=== PATIENT | female | born 1935 | race Caucasian/White ===

== ENCOUNTER 2019-11-02 17:56 | Emergency (ER) | payer MEDICARE, OTHER ==
[~2019-11-02] VITALS: Ht 157.5 cm; Wt 70.0 kg
--- NOTE | 2019-11-02 18:03 | PHYS DOC ---
Past History Past Medical History: Anemia, Arthritis, Arrhythmia, Cancer, Fibromyalgia, GERD, Hypertension, Hypothyroid, Other Past Medical History Glaucoma Past Surgical History: Cancer Surgery, Other Alcohol Use: None Drug Use: None General Adult EDM: Chief Complaint: MECHANICAL FALL HPI: HPI: ",,, I fell in the garage...and hurt my Lt. wrist again... I hit my head too..." " This is the same wrist I broke before.. and it feels like and looks like it 's broke again..." Patient is a 83 year old female who presents with above hx and complaints Lt. . wrist and head injury. Patient this give a clear history why she fell in her garage. Patient states she does drag her feet and states she may have tripped but does not know for sure that is what happened. Patient does not remember any dysrhythmia prior to fall. Patient does not remember any dizziness prior to fall. Patient does not remember tripping. Patient denies any recent travel. Patient denies any specific ill contacts. Patient denies any history of specific immunosuppression. Patient does have history of arthritis, dysrhythmias, anemia, GERD, and deconditioning. Patient has not had any recent change in medications. Patient does have a history of hypertension, arthritis, GERD and low thyroid. B patient normally follows with Dr. Reynolds for care. Review of Systems: Review of Systems: Constitutional: Denies fever or chills Eyes: Denies change in visual acuity HENT: Denies nasal congestion or sore throat Respiratory: Denies cough or shortness of breath Cardiovascular: Denies chest pain or edema GI: Denies abdominal pain, nausea, vomiting, bloody stools or diarrhea : Denies dysuria Musculoskeletal: Complains of Lt. wrist pain. Complaints of arthritis Integument: Denies rash Neurologic: Complains of contusion and headache. Patient denies, focal weakness or sensory changes Endocrine: Denies polyuria or polydipsia Lymphatic: Denies swollen glands Psychiatric: Denies depression. Complains of anxiety Heart Score: HEART Score for Chest Pain: HEART Score for Chest Pain Response (Comments) Value History Highly Suspicious 2 ECG Nonspecific Repolarizatio 1 Age > 65 2 Risk Factors 1 or 2 Risk Factors 1 Troponin < Normal Limit 0 Total 6 Risk Factors: Risk Factors: DM, Current or recent (<one month) smoker, HTN, HLP, family history of CAD, obesity. Risk Scores: Score 0 - 3: 2.5% MACE over next 6 weeks - Discharge Home Score 4 - 6: 20.3% MACE over next 6 weeks - Admit for Clinical Observation Score 7 - 10: 72.7% MACE over next 6 weeks - Early Invasive Strategies Family History: Family History: Noncontributory to presentation Current Medications: Current Meds: See nursing for home meds Allergies: Allergies: States she is allergic to flu vaccinations because of a make her muscles hurt patient complains of allergy to Flexeril, gabapentin and tramadol Physical Exam: PE: Constitutional: Moderate acute distress, non-toxic appearance. [] HENT: Normocephalic, contusion/hematoma to scalp, bilateral external ears normal, oropharynx moist, no oral exudates, nose normal. [] Eyes: PERRLA, EOMI, conjunctiva pale, no discharge. [] Neck: Normal range of motion, no tenderness, supple, no stridor. [] Scar Cardiovascular: Irregular rate and rhythm heart rate regular rhythm, PMI to the left. Lungs & Thorax: Bilateral breath sounds equal at apex on auscultation [] surgery scar Abdomen: Bowel sounds normal, soft, no tenderness, no masses, no pulsatile masses. Surgery scar Skin: Warm, dry, no erythema, no rash. Poor turgor Back: No tenderness, no CVA tenderness. [] Extremities: No tenderness, no cyanosis, no clubbing, ROM intact, no edema. [Arthritic changes. Except findings of the left wrist pain and obvious fractur e. Patient is right-hand dominant. Left wrist angulated. Marked edema. Distal cyanosis and fingertips of left hand.. Does have some decreased sensory in fingers of left hand. (These findings of distal cyanosis and sensation lost in Lt. finger tips resolved after partial reduction and splinting). Old scar left arm Neurologic: Alert and oriented X 3, moves all extremities on request, does have distal sensory,, no focal deficits noted. [] Patient has right-hand dominant Psychologic: Affect anxious judgement normal, mood normal. [] Some obvious memory issues. EKG: EKG: My interpretation EKG shows a rhythm ventricular rate of 77., Left axis deviation, obvious intraventricular block. No current comparison EKG found. [] Radiology/Procedures: Radiology/Procedures: [[address] [address] IMAGING REPORT Signed PATIENT: MARIS LI ACCOUNT: [id number] : 1935 LOCATION: ER AGE: 83 SEX: F EXAM STATUS: REG ER ORD. PHYSICIAN: ROSA COX MD REASON: repeat after splinting PROCEDURE: WRIST 3V LEFT Left wrist portable 3 views 11/02/2019. Reason for exam: Splinting of fracture. Comparison is made with a study of earlier in the day. There is now a splint in place. Angulation of the fracture at the distal radius appears reduced. No other changes noted. IMPRESSION: Splinted and reduced distal radius fracture. Electronically signed by: Christian Brantley Jr., MD (11/02/2019 8:12 PM) [facility] DICTATED AND SIGNED BY: CHRISTIAN BRANTLEY Jr, MD DATE: 11/02/192011 CC: ROSA COX MD; RONALD REYNOLDS MD ~ ][address] [address] IMAGING REPORT Signed PATIENT: MARIS LI ACCOUNT: [id number] : 1935 LOCATION: ER AGE: 83 SEX: F EXAM STATUS: REG ER ORD. PHYSICIAN: ROSA COX MD REASON: fall, head injury PROCEDURE: CT HEAD AND CERVICAL SPINE WO CT head and cervical spine without contrast 11/02/2019. Reason for exam: Fell and hit head. Noncontrast images were performed. Exposure: One or more of the following individualized dose reduction techniques were utilized for this examination: 1. Automated exposure control 2. Adjustment of the mA and/or kV according to patient size 3. Use of iterative reconstruction technique. CT HEAD: There is no apparent intracranial hemorrhage or abnormal extra-axial fluid collection. No area of abnormal density is seen in the brain. The ventricles and basilar cisterns are normally positioned. Bone windows reveal no apparent fracture of the skull or abnormal sinus or mastoid opacification. CT cervical spine: Alignment is normal. There is no loss of vertebral body height or prevertebral soft tissue swelling. No fracture line is seen. There is disc narrowing at C4-5, C5-6 and C6-7. Evaluation of the soft tissue components of the canal is limited without intrathecal contrast. No destructive process is seen. IMPRESSION: No acute abnormality. Electronically signed by: Christian Brantley Jr., MD (11/02/2019 6:38 PM) [facility] DICTATED AND SIGNED BY: CHRISTIAN BRANTLEY Jr, MD DATE: 11/02/191837 CC: ROSA COX MD; RONALD REYNOLDS MD ~ IMAGING REPORT Signed PATIENT: MARIS LI ACCOUNT: [id number] : 1935 LOCATION: ER AGE: 83 SEX: F EXAM STATUS: REG ER ORD. PHYSICIAN: ROSA COX MD REASON: FALL, LEFT WRIST PAIN AND DEFORMITY PROCEDURE: WRIST 3V LEFT Left wrist 3 views 11/02/2019. Reason for exam: Pain after falling. There is an impacted and angulated distal radius fracture. The distal component is tilted dorsally with displacement of about 6 mm. No other fracture is seen. There is some widening of the scapholunate space suggesting ligamentous disruption or laxity. Arthritic changes are present in the radial side of the wrist. IMPRESSION: Angulated displaced distal radius fracture. AP portable chest 11/02/2019. Reason for exam: Patient fell. Wrist fracture. No infiltrate or effusion is seen. Heart size and pulmonary vascularity appear normal. The bony thorax is grossly intact. There is some scoliosis of the thoracolumbar spine. IMPRESSION: No acute cardiopulmonary disease. Electronically signed by: Christian Brantley Jr., MD (11/02/2019 6:32 PM) [facility] DICTATED AND SIGNED BY: CHRISTIAN BRANTLEY Jr, MD DATE: 11/02/191831 CC: ROSA COX MD; RONALD REYNOLDS MD ~ Course & Med Decision Making: Course & Med Decision Making Pertinent Labs and Imaging studies reviewed. (See chart for details) Procedure note-splint placement and reduction of angulation of left wrist -the severely angulated left wrist was prepped with Betadine. Injected fracture site with Sensorcaine 0.5%and 2% lidocaine. Gentle traction was able to reduce angulation and placed splint. Did have marked improvement of distal circulation of fingertips and sensation in left hand fingertips. Patient to keep wrist elevated on a pillow. If develops increased pain or signs of poor circulation to left hand fingertips must notify her nurse or doctor at [facility]. Discussed presentation, testing and treatment plan with Dr.'s Timothy Virk and Dr. Fernandez. Plan transfer to [facility]. Dr. Fernandez accepting. Dr. Simons consulted, will see pt after admission. Requested pt to be NPO after midnight if he decides to take her to surgery. Plan cardiology and neuro consult. Impression: 1. History of fall-etiology of fall is on clear- ? Syncopal? 2. Closed comminuted fracture of left wrist 3. Anemia macrocytic hyperchromic hemoglobin 9.6, MCV 119, MCH 42 with abnormal morphology teardrops ect/ 4. Elevated d-dimer more than 19 5. Elevated CK 195 6. Elevated bilirubin T=1.2, D= 0.3 7. Mild hypokalemia kalemia 3.3 8. Elevated BUN 25 and creatinine 1.3 9. Urinary tract infection 10.Head Contusion/ Injury [] Dragon Disclaimer: Dragon Disclaimer: This electronic medical record was generated, in whole or in part, using a voice recognition dictation system. Departure Departure: Disposition: 01 HOME/RESIDENCE PRIOR TO ADM Condition: STABLE Referrals: RONALD REYNOLDS MD (PCP) Justification of Admission: Justification of Admission: Justification of Admission Dx: Yes Comments: Syncopal Dragon Disclaimer This chart was dictated in whole or in part using Voice Recognition software in a busy, high-work load, and often noisy Emergency Department environment. It may contain unintended and wholly unrecognized errors or omissions. Dragon Disclaimer This chart was dictated in whole or in part using Voice Recognition software in a busy, high-work load, and often noisy Emergency Department environment. It may contain unintended and wholly unrecognized errors or omissions. ROSA COX MD Nov 02, 2019 18:03
--- NOTE | 2019-11-02 18:35 | RAD ---
Left wrist 3 views 11/02/2019. Reason for exam: Pain after falling. There is an impacted and angulated distal radius fracture. The distal component is tilted dorsally with displacement of about 6 mm. No other fracture is seen. There is some widening of the scapholunate space suggesting ligamentous disruption or laxity. Arthritic changes are present in the radial side of the wrist. IMPRESSION: Angulated displaced distal radius fracture. AP portable chest 11/02/2019. Reason for exam: Patient fell. Wrist fracture. No infiltrate or effusion is seen. Heart size and pulmonary vascularity appear normal. The bony thorax is grossly intact. There is some scoliosis of the thoracolumbar spine. IMPRESSION: No acute cardiopulmonary disease. Electronically signed by: Emile Brantley Jr., MD (11/02/2019 6:32 PM) [facility]
--- NOTE | 2019-11-02 18:42 | RAD ---
CT head and cervical spine without contrast 11/02/2019. Reason for exam: Fell and hit head. Noncontrast images were performed. Exposure: One or more of the following individualized dose reduction techniques were utilized for this examination: 1. Automated exposure control 2. Adjustment of the mA and/or kV according to patient size 3. Use of iterative reconstruction technique. CT HEAD: There is no apparent intracranial hemorrhage or abnormal extra-axial fluid collection. No area of abnormal density is seen in the brain. The ventricles and basilar cisterns are normally positioned. Bone windows reveal no apparent fracture of the skull or abnormal sinus or mastoid opacification. CT cervical spine: Alignment is normal. There is no loss of vertebral body height or prevertebral soft tissue swelling. No fracture line is seen. There is disc narrowing at C4-5, C5-6 and C6-7. Evaluation of the soft tissue components of the canal is limited without intrathecal contrast. No destructive process is seen. IMPRESSION: No acute abnormality. Electronically signed by: Emile Brantley Jr., MD (11/02/2019 6:38 PM) [facility]
[2019-11-02] MEDS ORDERED: IV RINGERS SOLUTION,LACTATED 1,000 ML IV SCH (18:49)
[2019-11-02] MEDS ORDERED: BUPIVACAINE MPF 0.5% 30 ML VIAL. SQ ONE (19:00)
[2019-11-02] MEDS ORDERED: LIDOCAINE 2% 20 ML VIAL. IJ ONE (19:00)
[2019-11-02 19:14] LABS: BASO % 0 % (0-3); EOS # 0.1 x10^3/uL (0.0-0.7); EOS % 2 % (0-3); HEMATOCRIT 27.2 % (36.0-47.0); HEMOGLOBIN 9.6 g/dL (12.0-15.5); LYMPH # 1.1 x10^3/uL (1.0-4.8); LYMPH % 32 % (24-48); MEAN CORPUSCULAR HEMOGLOBIN 42 pg (25-35); MEAN CORPUSCULAR HGB CONC 35 g/dL (31-37); MEAN CORPUSCULAR VOLUME 119 fL (79-100); MONO # 0.2 x10^3/uL (0.0-1.1); MONO % 5 % (0-9); NEUT # 2.1 x10^3uL (1.8-7.7); NEUT % 62 % (31-73); PLATELET COUNT 116 x10^3/uL (140-400); RED BLOOD COUNT 2.28 x10^6/uL (3.50-5.40); WHITE BLOOD COUNT 3.4 x10^3/uL (4.0-11.0)
[2019-11-02 19:33] LABS: ALBUMIN 3.9 g/dL (3.4-5.0); CALCIUM 9.1 mg/dL (8.5-10.1); CREATININE 1.3 mg/dL (0.6-1.0); DIRECT BILIRUBIN 0.3 mg/dL (0.0-0.2); POTASSIUM 3.3 mmol/L (3.5-5.1); TOTAL BILIRUBIN 1.2 mg/dL (0.2-1.0); TOTAL PROTEIN 6.9 g/dL (6.4-8.2)
[2019-11-02 19:36] LABS: OVALOCYTES PRESENT; PLT ESTIMATE DECREASED (ADEQUATE); POLYCHROMASIA PRESENT; TEAR DROP CELLS PRESENT
[2019-11-02 19:38] LABS: ANISOCYTOSIS PRESENT; PAPPENHEIMER BODIES PRESENT; POIKILOCYTOSIS SLIGHT
[2019-11-02] MEDS ORDERED: POTASSIUM CHLORIDE 20 MEQ TABLET.ER. PO ONE (20:15)
--- NOTE | 2019-11-02 20:15 | RAD ---
Left wrist portable 3 views 11/02/2019. Reason for exam: Splinting of fracture. Comparison is made with a study of earlier in the day. There is now a splint in place. Angulation of the fracture at the distal radius appears reduced. No other changes noted. IMPRESSION: Splinted and reduced distal radius fracture. Electronically signed by: Emile Brantley Jr., MD (11/02/2019 8:12 PM) [facility]
[2019-11-02 20:34] LABS: BILIRUBIN,URINE NEG (NEG); CLARITY,URINE CLOUDY; COLOR,URINE YELLOW; GLUCOSE,URINE NEG (NEG)
[2019-11-02 20:35] LABS: BACTERIA,URINE MANY /HPF (0-FEW); NITRITE,URINE POS (NEG); SQUAMOUS EPITHELIAL CELL,UR FEW /LPF; WBC,URINE 20-40 /HPF (0-4)
--- NOTE | 2019-11-02 20:53 | EKG ---
[address] [address] Test Date: 2019-11-02 Test Time: 19:20:05 Pat Name: MARIS LI Department: Room: Gender: F Guide Delegate: : 1935 Requested By: ROSA COX Order Number: [id number] Reading MD: Measurements Intervals [place] Rate: 77 P: 34 DC: 178 QRS: -38 QRSD: 146 T: 80 QT: 404 QTc: 459 Interpretive Statements SINUS RHYTHM ATRIAL PREMATURE COMPLEX(ES) ABNORMAL LEFT AXIS DEVIATION NON SPECIFIC INTRAVENTRICULAR BLOCK QRS(T) CONTOUR ABNORMALITY CONSISTENT WITH ANTEROSEPTAL INFARCT PROBABLY OLD ABNORMAL ECG RI6.02 No previous ECG available for comparison
[2019-11-02 22:27] VITALS: BP 142/72
[2019-11-02] MEDS ORDERED: levoFLOXacin 500 MG TABLET PO ONE (22:30)
== END 2019-11-02 23:48 | disposition short-term general hospital (02) ==
LOC: ER 17:56
DX: S52.502A Unspecified fracture of the lower end of left radius, initial encounter for closed fracture (principal); S00.03XA Contusion of scalp, initial encounter; D53.9 Nutritional anemia, unspecified; R79.1 Abnormal coagulation profile; R79.89 Other specified abnormal findings of blood chemistry; E80.7 Disorder of bilirubin metabolism, unspecified; E87.6 Hypokalemia; N39.0 Urinary tract infection, site not specified; M19.90 Unspecified osteoarthritis, unspecified site; M79.7 Fibromyalgia; K21.9 Gastro-esophageal reflux disease without esophagitis; I10 Essential (primary) hypertension; E03.9 Hypothyroidism, unspecified; Z86.2 Personal history of diseases of the blood and blood-forming organs and certain disorders involving the immune mechanism; Z88.7 Allergy status to serum and vaccine; Z88.8 Allergy status to other drugs, medicaments and biological substances; W18.39XA Other fall on same level, initial encounter; Y93.89 Activity, other specified; Y92.59 Other trade areas as the place of occurrence of the external cause; Y99.8 Other external cause status
CPT/HCPCS: 25605; 36415; 70450; 71045; 72125; 73110; 80048; 80076; 81001; 82550; 83690; 83735; 83880; 84484; 85025; 85379; 85610; 85730; 86705; 86709; 86803; 87086; 87340; 93005; 96361; 96374; 99285; J2001; J3010; J7120

== ENCOUNTER 2019-11-08 20:02 | Emergency (ER) | payer MEDICARE, OTHER ==
[~2019-11-08] VITALS: Ht 157.5 cm; Wt 63.4 kg
--- NOTE | 2019-11-08 21:08 | EKG ---
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
[2019-11-08 21:14] LABS: BASO % 1 % (0-3); EOS # 0.2 x10^3/uL (0.0-0.7); EOS % 3 % (0-3); HEMATOCRIT 26.2 % (36.0-47.0); HEMOGLOBIN 9.3 g/dL (12.0-15.5); LYMPH # 1.7 x10^3/uL (1.0-4.8); LYMPH % 32 % (24-48); MEAN CORPUSCULAR HEMOGLOBIN 43 pg (25-35); MEAN CORPUSCULAR HGB CONC 35 g/dL (31-37); MEAN CORPUSCULAR VOLUME 121 fL (79-100); MONO # 0.2 x10^3/uL (0.0-1.1); MONO % 5 % (0-9); NEUT # 3.2 x10^3uL (1.8-7.7); NEUT % 60 % (31-73); PLATELET COUNT 311 x10^3/uL (140-400); RED BLOOD COUNT 2.16 x10^6/uL (3.50-5.40); RED CELL DISTRIBUTION WIDTH 18.1 % (11.5-14.5); WHITE BLOOD COUNT 5.2 x10^3/uL (4.0-11.0)
[2019-11-08 21:23] LABS: CALCIUM 9.1 mg/dL (8.5-10.1); CREATININE 1.1 mg/dL (0.6-1.0); GFR 47.3; POTASSIUM 3.7 mmol/L (3.5-5.1)
[2019-11-08 21:25] LABS: BACTERIA,URINE 0 /HPF (0-FEW); BILIRUBIN,URINE NEG (NEG); CLARITY,URINE CLEAR; COLOR,URINE YELLOW; GLUCOSE,URINE NEG (NEG); NITRITE,URINE NEG (NEG)
[2019-11-08 21:26] LABS: HYALINE CASTS, URINE OCC /HPF; SQUAMOUS EPITHELIAL CELL,UR FEW /LPF
[2019-11-08 21:34] LABS: ALBUMIN 3.7 g/dL (3.4-5.0); ALBUMIN/GLOBULIN RATIO 1.2 (1.0-1.7); MAGNESIUM 1.8 mg/dL (1.8-2.4); TOTAL BILIRUBIN 1.5 mg/dL (0.2-1.0); TOTAL PROTEIN 6.7 g/dL (6.4-8.2)
[2019-11-08 22:00] VITALS: BP 141/72
[2019-11-08 22:01] LABS: PLT ESTIMATE ADEQUATE (ADEQUATE)
[2019-11-08 22:02] LABS: ANISOCYTOSIS MOD; OVALOCYTES OCC; POLYCHROMASIA PRESENT
[2019-11-08 22:03] LABS: TEAR DROP CELLS OCC
--- NOTE | 2019-11-08 22:12 | RAD ---
Exam: CT head INDICATION: Syncope TECHNIQUE: Sequential axial images through the head were obtained without the administration of IV contrast. Comparisons: None FINDINGS: No focal parenchymal lesion or hemorrhage is identified. There is no midline shift or sulcal effacement. No acute vascular territory infarction is identified. Grant-white distinction is preserved. The ventricular system is within normal limits without compression hydrocephalus. The basal cisterns are well maintained. The visualized portions of the paranasal sinuses and mastoid air cells are well-pneumatized. No acute fractures. IMPRESSION: No acute intracranial abnormality. Exposure: One or more of the following in the visualized dose reduction techniques were utilized for this examination: 1. Automated exposure control 2. Adjustment of the MA and/or KV according to patient size Use of iterative of reconstructive technique Electronically signed by: Rosmery Blackmon MD (11/08/2019 10:09 PM) [id number]
[2019-11-08] MEDS ORDERED: IV NORMAL SALINE 500ML 500 ML IV ONE (23:00)
--- NOTE | 2019-11-08 23:17 | PHYS DOC ---
Past History Past Medical History: Anemia, Arthritis, Arrhythmia, Cancer, Fibromyalgia, GERD, Hypertension, Hypothyroid, Other Past Surgical History: Cancer Surgery, Other Alcohol Use: None Drug Use: None General Adult EDM: Chief Complaint: SYNCOPE HPI: HPI: Patient is a 83-year-old female who was brought here from home by EMS due to a syncopal episode that she had this morning happened about 9 hours ago. Patient had syncopal episode multiple times in the past. Patient says she was sitting on the toilet, yet had a bowel movement. Patient was standing up when she became dizzy , sat back down on the toilet and passed out briefly. Patient was confused and her speech was slow. EMS was called then, however she felt much better afterwards so she did not want to come to the hospital. Then later this evening her daughter who is a associate of science in nursing came by and convinced her to come to the hospital for evaluation. Patient denies any headache, no chest pain, no abdominal pain, no dizziness, no focal weakness or numbness. Patient denies any cough or fever. Patient did fell and broke her left wrist last week, she had ORIF of her left wrist at [facility] last week. Patient is scheduled to see her orthopedic doctor on Sunday. Review of Systems: Review of Systems: Constitutional: Denies fever or chills Eyes: Denies change in visual acuity HENT: Denies nasal congestion or sore throat Respiratory: Denies cough or shortness of breath Cardiovascular: Denies chest pain or edema GI: Denies abdominal pain, nausea, vomiting, bloody stools or diarrhea : Denies dysuria Musculoskeletal: Denies back pain or joint pain Integument: Denies rash Neurologic: Denies headache, focal weakness or sensory changes Endocrine: Denies polyuria or polydipsia Lymphatic: Denies swollen glands Psychiatric: Denies depression or anxiety Heart Score: Risk Factors: Risk Factors: DM, Current or recent (<one month) smoker, HTN, HLP, family history of CAD, obesity. Risk Scores: Score 0 - 3: 2.5% MACE over next 6 weeks - Discharge Home Score 4 - 6: 20.3% MACE over next 6 weeks - Admit for Clinical Observation Score 7 - 10: 72.7% MACE over next 6 weeks - Early Invasive Strategies Current Medications: Current Meds: Current Medications Medications (Trade) Dose Ordered Sig/Elizabeth Start Time Stop Time Status Last Admin Dose Admin Sodium Chloride 500 ml @ 500 mls/hr 1X ONCE 11/08/19 23:00 11/08/19 23:59 11/08/19 22:57 500 MLS/HR Allergies: Allergies: Allergies Coded Allergies Type Severity Reaction Last Updated Verified Influenza Virus Vaccines Allergy Intermediate 11/08/19 Yes cyclobenzaprine Allergy Intermediate 11/08/19 Yes gabapentin Allergy Intermediate 11/08/19 Yes tramadol Allergy Intermediate 11/08/19 Yes Physical Exam: PE: Constitutional: Well developed, well nourished, no acute distress, non-toxic appearance. [] HENT: Normocephalic, atraumatic, bilateral external ears normal, oropharynx moist, no oral exudates, nose normal. [] Eyes: PERRLA, EOMI, conjunctiva normal, no discharge. [] Neck: Normal range of motion, no tenderness, supple, no stridor. [] Cardiovascular:Heart rate regular rhythm, no murmur [] Lungs & Thorax: Bilateral breath sounds clear to auscultation [] Abdomen: Bowel sounds normal, soft, no tenderness, no masses, no pulsatile masses. [] Skin: Warm, dry, no erythema, no rash. [] Back: No tenderness, no CVA tenderness. [] Extremities: No tenderness, no cyanosis, no clubbing, ROM intact, no edema. Left wrist is in a splint. Neurologic: Alert and oriented X 3, normal motor function, normal sensory function, no focal deficits noted. Normal speech, patient moves all extremities without any problem. Psychologic: Affect normal, judgement normal, mood normal. [] Current Patient Data: Labs: Laboratory Tests Test 11/08/19 20:41 11/08/19 20:58 Urine Collection Type Unknown Urine Color Yellow Urine Clarity Clear Urine pH 6.5 Urine Specific [place] 1.015 Urine Protein Neg (NEG-TRACE) Urine Glucose (UA) Neg mg/dL (NEG) Urine Ketones (Stick) Trace mg/dL (NEG) Urine Blood Neg (NEG) Urine Nitrite Neg (NEG) Urine Bilirubin Neg (NEG) Urine Urobilinogen Dipstick 2.0 mg/dL (0.2 mg/dL) Urine Leukocyte Esterase Neg (NEG) Urine RBC 1-2 /HPF (0-2) Urine WBC 1-4 /HPF (0-4) Urine Squamous Epithelial Cells Few /LPF Urine Bacteria 0 /HPF (0-FEW) Urine Hyaline Casts Occ /HPF Urine Mucus Slight /LPF White Blood Count 5.2 x10^3/uL (4.0-11.0) Red Blood Count 2.16 x10^6/uL (3.50-5.40) L Hemoglobin 9.3 g/dL (12.0-15.5) L Hematocrit 26.2 % (36.0-47.0) L Mean Corpuscular Volume 121 fL (79-100) H Mean Corpuscular Hemoglobin 43 pg (25-35) H Mean Corpuscular Hemoglobin Concent 35 g/dL (31-37) Red Cell Distribution Width 18.1 % (11.5-14.5) H Platelet Count 311 x10^3/uL (140-400) Neutrophils (%) (Auto) 60 % (31-73) Lymphocytes (%) (Auto) 32 % (24-48) Monocytes (%) (Auto) 5 % (0-9) Eosinophils (%) (Auto) 3 % (0-3) Basophils (%) (Auto) 1 % (0-3) Neutrophils # (Auto) 3.2 x10^3uL (1.8-7.7) Lymphocytes # (Auto) 1.7 x10^3/uL (1.0-4.8) Monocytes # (Auto) 0.2 x10^3/uL (0.0-1.1) Eosinophils # (Auto) 0.2 x10^3/uL (0.0-0.7) Basophils # (Auto) 0.0 x10^3/uL (0.0-0.2) Platelet Estimate Adequate (ADEQUATE) Giant Platelets Occ Polychromasia Present Basophilic Stippling Present Anisocytosis Mod Macrocytosis Slight Tear Drop Cells Occ Ovalocytes Occ Sodium Level 141 mmol/L (136-145) Potassium Level 3.7 mmol/L (3.5-5.1) Chloride Level 104 mmol/L (98-107) Carbon Dioxide Level 29 mmol/L (21-32) Anion Gap 8 (6-14) Blood Urea Nitrogen 20 mg/dL (7-20) Creatinine 1.1 mg/dL (0.6-1.0) H Estimated GFR (Cockcroft-Gault) 47.3 BUN/Creatinine Ratio 18 (6-20) Glucose Level 111 mg/dL (70-99) H Calcium Level 9.1 mg/dL (8.5-10.1) Magnesium Level 1.8 mg/dL (1.8-2.4) Total Bilirubin 1.5 mg/dL (0.2-1.0) H Aspartate Amino Transferase (AST) 28 U/L (15-37) Alanine Aminotransferase (ALT) 23 U/L (14-59) Alkaline Phosphatase 76 U/L (46-116) Troponin I Quantitative < 0.017 ng/mL (0-0.055) BR-Taq-F-Type Natriuretic Peptide 418 pg/mL (0-449) Total Protein 6.7 g/dL (6.4-8.2) Albumin 3.7 g/dL (3.4-5.0) Albumin/Globulin Ratio 1.2 (1.0-1.7) Vital Signs: Vital Signs Date Time Temp Pulse Resp B/P (MAP) Pulse Ox O2 Delivery O2 Flow Rate FiO2 11/08/19 22:00 86 16 141/72 (95) 99 Room Air 11/08/19 20:02 98.1 EKG: EKG: EKG was done at 2011, heart rate of 87 bpm, sinus rhythm, left bundle branch block., No STEMI. Radiology/Procedures: Radiology/Procedures: [][place] [address] IMAGING REPORT Signed PATIENT: MARIS LI ACCOUNT: [id number] : 1935 LOCATION: ER AGE: 83 SEX: F EXAM STATUS: REG ER ORD. PHYSICIAN: ELOY BYRNES DO REASON: syncope PROCEDURE: CT HEAD WO CONTRAST Exam: CT head INDICATION: Syncope TECHNIQUE: Sequential axial images through the head were obtained without the administration of IV contrast. Comparisons: None FINDINGS: No focal parenchymal lesion or hemorrhage is identified. There is no midline shift or sulcal effacement. No acute vascular territory infarction is identified. Grant-white distinction is preserved. The ventricular system is within normal limits without compression hydrocephalus. The basal cisterns are well maintained. The visualized portions of the paranasal sinuses and mastoid air cells are well-pneumatized. No acute fractures. IMPRESSION: No acute intracranial abnormality. Exposure: One or more of the following in the visualized dose reduction techniques were utilized for this examination: 1. Automated exposure control 2. Adjustment of the MA and/or KV according to patient size Use of iterative of reconstructive technique Electronically signed by: Rosmery Ray MD (11/08/2019 10:09 PM) [id number] DICTATED AND SIGNED BY: ROSMERY RAY MD DATE: 11/08/192208 CC: RONALD SOLIS MD; ELOY BYRNES DO ~ Course & Med Decision Making: Course & Med Decision Making Pertinent Labs and Imaging studies reviewed. (See chart for details) Patient is an 83-year-old female who appears had a vasovagal response earlier this morning. Patient felt much better afterwards however her family convinced her to come to the hospital for evaluation this evening. Patient did not have any chest pain or any headache or any trouble breathing. Patient feels like her normal self. Work-up did not find any acute problem. Patient was discharged home in stable condition. [employer] Disclaimer: [employer] Disclaimer: This electronic medical record was generated, in whole or in part, using a voice recognition dictation system. Departure Departure: Impression: Primary Impression: Syncope Disposition: 01 HOME/RESIDENCE PRIOR TO ADM Condition: IMPROVED Referrals: RONALD SOLIS MD (PCP) PLEASE FOLLOW UP WITH YOUR DOCTOR NEXT WEEK Patient Instructions: Syncope Additional Instructions: Thank you for visiting our Emergency Department. We appreciate you trusting us with your care. If any additional problems come up don't hesitate to return to visit us. Please follow up with your primary care provider so they can plan additional care if needed and know about the problem that you had. If symptoms worsen come back to the Emergency Department. Any concerning symptoms that start such as chest pain, shortness of air, weakness or numbness on one side of the body, running high fevers or any other concerning symptoms return to the ER. Justification of Admission: Justification of Admission: Justification of Admission Dx: N/A ELOY BYRNES DO Nov 08, 2019 23:17
== END 2019-11-08 23:35 | disposition home or self-care (01) ==
LOC: ER 20:02
DX: R55 Syncope and collapse (principal); R42 Dizziness and giddiness; R41.0 Disorientation, unspecified; M19.90 Unspecified osteoarthritis, unspecified site; M79.7 Fibromyalgia; K21.9 Gastro-esophageal reflux disease without esophagitis; I10 Essential (primary) hypertension; E03.9 Hypothyroidism, unspecified; Z86.2 Personal history of diseases of the blood and blood-forming organs and certain disorders involving the immune mechanism; Z88.7 Allergy status to serum and vaccine; Z88.6 Allergy status to analgesic agent; Z88.8 Allergy status to other drugs, medicaments and biological substances
CPT/HCPCS: 36415; 70450; 80053; 81001; 83735; 83880; 84484; 85025; 93005; 96360; 99285; J7040

== ENCOUNTER → 2019-12-01 | Outpatient (CLI) | payer MEDICARE, OTHER ==
[2019-11-08 22:00] VITALS: BP 141/72
--- NOTE | 2019-12-01 15:55 | RAD ---
Examination: 3 views of the left wrist HISTORY: History of postop follow-up ORIF Comparison: 11/02/2019 Findings/ impression: Plate and screw fixation of the distal radius fracture is identified. There is widening of the scapholunate interval probably secondary to scapholunate ligament injury similar to prior exam. Arthritic changes identified in the radial side of the wrist. Electronically signed by: Garret Garcia MD (12/01/2019 3:53 PM) [id number]
== END | disposition home or self-care (01) ==
LOC: DXRAD 13:17
PROVIDERS: ATTEND Physician Assistant
DX: M19.032 Primary osteoarthritis, left wrist (principal); Z98.890 Other specified postprocedural states
CPT/HCPCS: 73110

== ENCOUNTER → 2019-12-10 | Outpatient (CLI) | payer MEDICARE, OTHER ==
[2019-12-10 09:47] LABS: BILIRUBIN,URINE NEG (NEG); CLARITY,URINE HAZY; COLOR,URINE YELLOW; GLUCOSE,URINE NEG (NEG); NITRITE,URINE NEG (NEG); RBC,URINE OCC /HPF (0-2)
[2019-12-10 09:48] LABS: BACTERIA,URINE FEW /HPF (0-FEW); HYALINE CASTS, URINE FEW /HPF; SQUAMOUS EPITHELIAL CELL,UR FEW /LPF
== END | disposition home or self-care (01) ==
LOC: LAB 09:10
PROVIDERS: ATTEND Specialist
DX: N39.0 Urinary tract infection, site not specified (principal)
CPT/HCPCS: 81001; 87086

== ENCOUNTER → 2019-12-29 | Outpatient (CLI) | payer MEDICARE, OTHER ==
--- NOTE | 2019-12-29 15:47 | RAD ---
EXAM: Clenched fist views and PA and lateral projections DATE: 12/29/2019 1:32 PM INDICATION: Reason: PAIN / Spl. Instructions: / History: COMPARISON: 12/01/2019, 11/02/2019 FINDINGS/ IMPRESSION: Distal left radial fracture post reduction and volar screw plate fixation in stable alignment. Mild articular surface depression of the lunate fossa. Left scapholunate widening suggest underlying scapholunate ligamentous injury, measuring 6 mm, asymmetric increased compared to the right. Left ulnar styloid avulsion fracture is again seen. Bilateral thumb CMC and triscaphe degenerative changes are seen. Electronically signed by: Seymour Pope MD (12/29/2019 3:44 PM) [id number]
== END ==
LOC: RAD 13:26
PROVIDERS: ATTEND Physician Assistant
DX: S52.502A Unspecified fracture of the lower end of left radius, initial encounter for closed fracture (principal); M19.032 Primary osteoarthritis, left wrist; M19.031 Primary osteoarthritis, right wrist; S63.075A Dislocation of distal end of left ulna, initial encounter; X58.XXXA Exposure to other specified factors, initial encounter; Y93.89 Activity, other specified; Y92.89 Other specified places as the place of occurrence of the external cause; Y99.8 Other external cause status; Z98.890 Other specified postprocedural states
CPT/HCPCS: 73100

== ENCOUNTER 2020-02-10 15:20 | Emergency (ER) | payer MEDICARE, OTHER ==
[~2020-02-10] VITALS: Ht 157.5 cm; Wt 63.0 kg
[2020-02-10 15:25] VITALS: BP 153/105
--- NOTE | 2020-02-10 16:20 | RAD ---
EXAM: Head CT without contrast. HISTORY: Confusion. TECHNIQUE: Computed tomographic images of the head were obtained without contrast. *One or more of the following individualized dose reduction techniques were utilized for this examination: 1. Automated exposure control. 2. Adjustment of the mA and/or kV according to patient size. 3. Use of iterative reconstruction technique. COMPARISON: 11/08/2019. FINDINGS: There is no acute or subacute extra-axial or intraparenchymal hemorrhage. There is no mass effect or midline shift. There is no hydrocephalus. There are areas of decreased attenuation within the cerebral white matter, nonspecific and likely related to chronic small vessel disease. The visualized portions of the orbits, paranasal sinuses and mastoid air cells are unremarkable. No suspicious calvarial lesion is seen. IMPRESSION: No acute intracranial finding. Note is made that MRI is more sensitive for acute infarction. Electronically signed by: Alix Soni MD (02/10/2020 4:17 PM) [facility]
--- NOTE | 2020-02-10 16:45 | PHYS DOC ---
Past History Past Medical History: Anemia, Arthritis, Arrhythmia, Cancer, Fibromyalgia, GERD, Hypertension, Hypothyroid, Other (CHELY BOATENG MD) Past Surgical History: Cancer Surgery, Other (CHELY BOATENG MD) Alcohol Use: None Drug Use: None (CHELY BOATENG MD) Adult General Chief Complaint Chief Complaint: ALTERED MENTAL STATUS HPI HPI Patient is an 84-year-old female who presents to the emergency room with some possible confusion. Patient has been staying with her daughter for the last 8 weeks due to progressive weakness. She states she has polio as a child and has had weak legs since that time. She states that weakness is gotten significantly worse over the last couple of years and she is now requiring more help so she is staying with her daughter. She states her daughter noticed yesterday that she was out of it and kind of confused. She states this is continued today so her daughter wanted her sent here to be evaluated. She states she feels a little lightheaded and off but otherwise feels normal. She denies any increased difficulty with gait but does have issues walking at baseline. (CHELY BOATENG MD) Review of Systems Review of Systems Complete ROS is negative unless otherwise documented in HPI (CHELY BOATENG MD) Allergies Allergies Allergies Coded Allergies Type Severity Reaction Last Updated Verified Influenza Virus Vaccines Allergy Intermediate 02/10/20 Yes cyclobenzaprine Allergy Intermediate 02/10/20 Yes gabapentin Allergy Intermediate 02/10/20 Yes tramadol Allergy Intermediate 02/10/20 Yes (CHELY BOATENG MD) Physical Exam Physical Exam General: Awake, alert, NAD. Well Nourished, well hydrated. Cooperative HEENT: Atraumatic, EOMI, PERRL, airway patent, moist oral mucosa Neck: Supple, trachea midline Respiratory: CTA bilaterally, normal effort, no wheezing/crackles CV: RRR, no murmur, cap refill <2 GI: Soft, nondistended, nontender, no masses MSK: No obvious deformities Skin: Warm, dry, intact Neuro: A&O x3, speech NL, 5/5 strength in BUE/BLE distally and proximally, CN 2- 12 intact, cerebellar testing normal Psych: Normal affect, normal mood, not suicidal or homicidal (CHELY BOATENG MD) Current Patient Data Vital Signs Vital Signs Date Time Temp Pulse Resp B/P (MAP) Pulse Ox O2 Delivery O2 Flow Rate FiO2 12/1/20 15:25 98.5 80 24 153/105 (121) 99 Room Air (CHEYL BOATENG MD) EKG EKG [] (CHELY BOATENG MD) Radiology/Procedures Radiology/Procedures [] (CHELY BOATENG MD) Heart Score Risk Factors: Risk Factors: DM, Current or recent (<one month) smoker, HTN, HLP, family history of CAD, obesity. Risk Scores: Risk Factors: DM, Current or recent (<one month) smoker, HTN, HLP, family history of CAD, obesity. (CHELY BOATENG MD) Course & Med Decision Making Course & Med Decision Making Pertinent Labs and Imaging studies reviewed. (See chart for details) Patient is 89-year-old female presents to the emergency room with possible increasing confusion. Patient is alert and oriented and able to give a full history at this time. CT head was done as symptoms started yesterday. There is no signs of a subacute stroke. Patient does not have any focal deficits that would be suggestive of a stroke. Metabolic work-up was ordered including a UA to evaluate for UTI. (CHELY BOATENG MD) Course & Med Decision Making Accepted care patient at shift change, she is pending UA and getting fluids. UA resulted negative for UTI. Discussed with patient labs consistent with her being dehydrated, patient states she tries to drink water but recently has not been very good about it. Patient open to go home, lives with daughter. (OLGA FLOOD MD) Dragon Disclaimer Dragon Disclaimer This electronic medical record was generated, in whole or in part, using a voice recognition dictation system. (CHELY BOATENG MD) Departure Departure: Impression: Primary Impression: Altered mental status Additional Impression: Dehydration Disposition: 01 DC HOME SELF CARE/HOMELESS Condition: STABLE Referrals: RONALD SOLIS MD (PCP) Patient Instructions: Dehydration, Adult Problem Qualifiers CHELY BOATENG MD Feb 10, 2020 16:45 OLGA FLOOD MD Feb 10, 2020 18:24
[2020-02-10 16:46] LABS: BASO % 0 % (0-3); EOS # 0.1 x10^3/uL (0.0-0.7); EOS % 2 % (0-3); HEMATOCRIT 34.9 % (36.0-47.0); HEMOGLOBIN 11.2 g/dL (12.0-15.5); LYMPH # 1.4 x10^3/uL (1.0-4.8); LYMPH % 23 % (24-48); MEAN CORPUSCULAR HEMOGLOBIN 34 pg (25-35); MEAN CORPUSCULAR HGB CONC 32 g/dL (31-37); MEAN CORPUSCULAR VOLUME 106 fL (79-100); MONO # 0.5 x10^3/uL (0.0-1.1); MONO % 8 % (0-9); NEUT # 3.9 x10^3uL (1.8-7.7); NEUT % 67 % (31-73); PLATELET COUNT 229 x10^3/uL (140-400); RED BLOOD COUNT 3.31 x10^6/uL (3.50-5.40); RED CELL DISTRIBUTION WIDTH 19.6 % (11.5-14.5); WHITE BLOOD COUNT 5.9 x10^3/uL (4.0-11.0)
[2020-02-10 16:53] LABS: CALCIUM 8.2 mg/dL (8.5-10.1); CREATININE 0.9 mg/dL (0.6-1.0); GFR 59.5; POTASSIUM 3.1 mmol/L (3.5-5.1)
[2020-02-10 17:00] LABS: ALBUMIN 3.3 g/dL (3.4-5.0); ALBUMIN/GLOBULIN RATIO 1.3 (1.0-1.7); TOTAL BILIRUBIN 0.5 mg/dL (0.2-1.0); TOTAL PROTEIN 5.9 g/dL (6.4-8.2)
[2020-02-10] MEDS ORDERED: IV NORMAL SALINE 1,000ML 1,000 ML IV ONE (17:30)
[2020-02-10 17:46] LABS: CLARITY,URINE CLEAR; COLOR,URINE COLORLESS; GLUCOSE,URINE NEG (NEG)
[2020-02-10 17:47] LABS: BACTERIA,URINE 0 /HPF (0-FEW); BILIRUBIN,URINE NEG (NEG); NITRITE,URINE NEG (NEG); RBC,URINE 0 /HPF (0-2); UROBILINOGEN,URINE 0.2 mg/dL (0.2 mg/dL); WBC,URINE 0 /HPF (0-4)
== END 2020-02-10 18:50 | disposition home or self-care (01) ==
LOC: ER 15:20
DX: E86.0 Dehydration (principal); R41.82 Altered mental status, unspecified; M19.90 Unspecified osteoarthritis, unspecified site; M79.7 Fibromyalgia; K21.9 Gastro-esophageal reflux disease without esophagitis; I10 Essential (primary) hypertension; E03.9 Hypothyroidism, unspecified; Z86.2 Personal history of diseases of the blood and blood-forming organs and certain disorders involving the immune mechanism; Z88.7 Allergy status to serum and vaccine; Z88.8 Allergy status to other drugs, medicaments and biological substances
CPT/HCPCS: 36415; 70450; 80053; 81001; 85025; 96360; 99284; J7030

== ENCOUNTER → 2020-02-16 | Outpatient (CLI) | payer MEDICARE, OTHER ==
[2020-02-10 15:25] VITALS: BP 153/105
--- NOTE | 2020-02-16 16:10 | RAD ---
Exam: CT head INDICATION: Mental status changes TECHNIQUE: Sequential axial images through the head were obtained without the administration of IV contrast. Comparisons: None FINDINGS: No focal parenchymal lesion or hemorrhage is identified. There is no midline shift or sulcal effacement. No acute vascular territory infarction is identified. Grant-white distinction is preserved. The ventricular system is within normal limits without compression hydrocephalus. The basal cisterns are well maintained. The visualized portions of the paranasal sinuses and mastoid air cells are well-pneumatized. No acute fractures. IMPRESSION: No acute intracranial abnormality. Exposure: One or more of the following in the visualized dose reduction techniques were utilized for this examination: 1. Automated exposure control 2. Adjustment of the MA and/or KV according to patient size Use of iterative of reconstructive technique Electronically signed by: Rosmery Blackmon MD (02/16/2020 4:08 PM) DIMAS
== END ==
LOC: CT 15:31
PROVIDERS: ATTEND Specialist
DX: R41.82 Altered mental status, unspecified (principal)
CPT/HCPCS: 70450

== ENCOUNTER → 2020-02-17 | Outpatient (CLI) | payer MEDICARE, OTHER ==
[2020-02-10 15:25] VITALS: BP 153/105
--- NOTE | 2020-02-17 14:32 | RAD ---
EXAM: 2 views of the left wrist DATE: 02/17/2020 12:00 AM INDICATION: Reason: FOLLOW UP WRIST FX / Spl. Instructions: / History: COMPARISON: No Prior FINDINGS: Progressively healing distal radial fracture post volar screw plate fixation is stable in alignment with prominent callus formation. Scapholunate widening is again seen suggesting underlying ligamentous injury. Advanced triscaphe DJD. Old ulnar styloid avulsion fracture. Distal radioulnar joint degenerative change. IMPRESSION: 1. Progressively healing distal radial fracture post reduction and fixation, in stable alignment. 2. Scapholunate widening suggesting underlying ligamentous injury. 3. Multifocal degenerative change. Electronically signed by: Seymour Pope MD (02/17/2020 2:29 PM) HARJIT
== END ==
LOC: DXRAD 09:41
PROVIDERS: ATTEND Physician Assistant
DX: M19.042 Primary osteoarthritis, left hand (principal); Z98.890 Other specified postprocedural states
CPT/HCPCS: 73100

== ENCOUNTER → 2020-03-01 | Outpatient (CLI) | payer MEDICARE, OTHER ==
[2020-02-10 15:25] VITALS: BP 153/105
--- NOTE | 2020-03-01 16:49 | RAD ---
Ultrasound carotid Doppler 03/01/2020 10:09 AM INDICATION: Altered mental status, syncope and collapse COMPARISON: None available TECHNIQUE: Sonographic imaging of the carotid vasculature was performed utilizing grayscale, color Do ppler and spectral waveform analysis. FINDINGS: (All velocities are measured cm per second) Right carotid: Minor plaque without significant luminal stenosis. Peak systolic velocity: Proximal common carotid artery: 71 Distal common carotid artery: 38 Proximal internal carotid artery: 42 Middle internal carotid artery: 48 Distal internal carotid artery: 64 End-diastolic velocity: 13 External carotid artery: 67 Internal carotid artery/common carotid artery ratio: 0.84 Vertebral artery: Antegrade flow Subclavian artery: Triphasic waveform Left carotid: Minor plaque without significant luminal stenosis. Peak systolic velocity: Proximal common carotid artery: 81 Distal common carotid artery: 59 Proximal internal carotid artery: 48 Middle internal carotid artery: 59 Distal internal carotid artery: 57 End-diastolic velocity: 14 External carotid artery: 63 Internal carotid artery/common carotid artery ratio: 0.71 Vertebral artery: Antegrade flow Subclavian artery: Triphasic waveform IMPRESSION: 1. No evidence for hemodynamically significant carotid stenosis. 2. Antegrade flow is identified in the vertebral arteries. 3. Evaluation of the carotid vasculature and measurements for luminal stenosis was performed utilizin g NASCET criteria. Electronically signed by: Lisa Crystal MD (03/01/2020 4:47 PM) [id number]
== END ==
LOC: US 09:39
PROVIDERS: ATTEND Specialist
DX: I65.23 Occlusion and stenosis of bilateral carotid arteries (principal)
CPT/HCPCS: 93880

== ENCOUNTER → 2020-06-10 | Outpatient (CLI) | payer MEDICARE, OTHER ==
[2020-06-10 12:42] LABS: BASO # 0.1 x10^3/uL (0.0-0.2); BASO % 1 % (0-3); EOS # 0.1 x10^3/uL (0.0-0.7); EOS % 2 % (0-3); HEMATOCRIT 42.7 % (36.0-47.0); HEMOGLOBIN 14.2 g/dL (12.0-15.5); LYMPH # 1.8 x10^3/uL (1.0-4.8); LYMPH % 25 % (24-48); MEAN CORPUSCULAR HEMOGLOBIN 30 pg (25-35); MEAN CORPUSCULAR HGB CONC 33 g/dL (31-37); MEAN CORPUSCULAR VOLUME 89 fL (79-100); MONO # 0.5 x10^3/uL (0.0-1.1); MONO % 8 % (0-9); NEUT # 4.5 x10^3uL (1.8-7.7); NEUT % 64 % (31-73); PLATELET COUNT 241 x10^3/uL (140-400); RED BLOOD COUNT 4.79 x10^6/uL (3.50-5.40); RED CELL DISTRIBUTION WIDTH 14.9 % (11.5-14.5)
== END ==
LOC: LAB 10:56
PROVIDERS: ATTEND Internal Medicine Hematology & Oncology
DX: D64.9 Anemia, unspecified (principal)
CPT/HCPCS: 36415; 82607; 82746; 85025

== ENCOUNTER 2020-07-19 14:44 | Emergency (ER) | payer MEDICARE, OTHER ==
[~2020-07-19] VITALS: Ht 157.5 cm; Wt 66.0 kg
--- NOTE | 2020-07-19 14:57 | PHYS DOC ---
Past History Past Medical History: Anemia, Arthritis, Arrhythmia, Cancer, Fibromyalgia, GERD, Hypertension, Hypothyroid, Other (OLGA FLOOD MD) Past Surgical History: Cancer Surgery, Other (OLGA FLOOD MD) Alcohol Use: None Drug Use: None (OLGA FLOOD MD) General Adult EDM: Chief Complaint: SYNCOPE HPI: HPI: Patient is a 84-year-old female brought by EMS for near syncopal episode. Patient states she was in her home and sitting down at the time. Says she felt like she was going to pass out and felt a hot flash and clamminess. Patient states she did not pass out and symptoms resolved within minutes. Was talking to her daughter on the phone that time who encouraged her to come to the emergency department. Patient states she is does not think she is been drinking much water today. Has been has been up and down around her house and denies any increased activity today, but did state that she had dinner with friends last night and had more activity then. Patient states she otherwise has been well, no known sick contacts. Denies any chest pain or dyspnea at the time. (OLGA FLOOD MD) Review of Systems: Review of Systems: All other systems within normal limits except for as noted in the HPI (OLGA FLOOD MD) Allergies: Allergies: Allergies Coded Allergies Type Severity Reaction Last Updated Verified Influenza Virus Vaccines Allergy Intermediate 02/10/20 Yes cyclobenzaprine Allergy Intermediate 02/10/20 Yes gabapentin Allergy Intermediate 02/10/20 Yes tramadol Allergy Intermediate 02/10/20 Yes (OLGA FLOOD MD) Physical Exam: PE: Constitutional: Well developed, well nourished, no acute distress, non-toxic appearance. [] HENT: Normocephalic, atraumatic, bilateral external ears normal, nose normal. Moist mucous membranes [] Eyes: PERRLA, conjunctiva normal, no discharge. [] Neck: No rigidity, supple, no stridor. [] Cardiovascular: Regular rate and rhythm, brisk cap refill, symmetric pulses [] Lungs & Thorax: Non labored symmetric respirations, no tachypnea or respiratory distress [] Abdomen: Soft, nondistended, no tenderness or guarding to palpation.. Skin: Warm, dry, no erythema, no rash. No pallor [] Back: Unremarkable Extremities: No deformities, range of motion grossly intact, bilateral lower extremity edema, slightly more on right (per patient is her baseline) [] Neurologic: Alert and oriented X 3, no focal deficits noted. [] Psychologic: Affect normal, judgement normal, mood normal. [] (OLGA FLOOD MD) EKG: EKG: Sinus rhythm with left axis deviation, heart rate 84 bpm, left bundle branch block, no Sgarbossa criteria to indicate STEMI. [] (OLGA FLOOD MD) Radiology/Procedures: Radiology/Procedures: [] (OLGA FLOOD MD) Heart Score: C/O Chest Pain: No Risk Factors: Risk Factors: DM, Current or recent (<one month) smoker, HTN, HLP, family history of CAD, obesity. Risk Scores: Score 0 - 3: 2.5% MACE over next 6 weeks - Discharge Home Score 4 - 6: 20.3% MACE over next 6 weeks - Admit for Clinical Observation Score 7 - 10: 72.7% MACE over next 6 weeks - Early Invasive Strategies (OLGA FLOOD MD) Course & Med Decision Making: Course & Med Decision Making Patient feeling better, mild dehydration on labs. Care transition at shift change pending repeat troponin. (OLGA FLOOD MD) Course & Med Decision Making The patient's repeat troponin was negative. She would like to go home. She is stable for discharge at this time. (ONUR BUENO DO) Dragon Disclaimer: Dragon Disclaimer: This electronic medical record was generated, in whole or in part, using a voice recognition dictation system. (OLGA FLOOD MD) Attending Co-Sign The patient was seen and interviewed as well as examined at the bedside. The chart was reviewed. The case was discussed. Agree with the plan of care. (ONUR BUENO DO) Departure Departure: Impression: Primary Impression: Near syncope Disposition: HOME / SELF CARE / HOMELESS Condition: STABLE Referrals: RONALD SOLIS MD (PCP) Patient Instructions: Near-Syncope OLGA FLOOD MD July 19, 2020 14:57 ONUR BUENO DO July 20, 2020 00:32
--- NOTE | 2020-07-19 15:06 | EKG ---
[address] [address] Test Date: 2020-07-19 Test Time: 14:52:10 Pat Name: MARIS LI Department: Room: Gender: F Anesthesiologist Assistant Certified: MARC : 1935 Requested By: OLGA FLOOD Order Number: [id number] Reading MD: Measurements Intervals [place] Rate: 84 P: 0 ME: 176 QRS: -36 QRSD: 140 T: 111 QT: 400 QTc: 476 Interpretive Statements SINUS RHYTHM ABNORMAL LEFT AXIS DEVIATION LEFT BUNDLE BRANCH BLOCK ABNORMAL ECG RI6.02 No previous ECG available for comparison
--- NOTE | 2020-07-19 15:18 | RAD ---
EXAM: Chest, single view. HISTORY: Near syncope. COMPARISON: 11/02/2019 FINDINGS: A frontal view of the chest is obtained. There is gaseous distention of the stomach and mil d elevation of the left hemidiaphragm. There is no infiltrate, pleural effusion or pneumothorax. Ther e is a stable cardiac silhouette. IMPRESSION: No acute pulmonary finding. Electronically signed by: Alix Soni MD (07/19/2020 3:16 PM) [facility]
[2020-07-19 15:20] LABS: BASO # 0.1 x10^3/uL (0.0-0.2); BASO % 1 % (0-3); EOS # 0.1 x10^3/uL (0.0-0.7); EOS % 1 % (0-3); HEMATOCRIT 42.7 % (36.0-47.0); HEMOGLOBIN 14.1 g/dL (12.0-15.5); LYMPH # 1.8 x10^3/uL (1.0-4.8); LYMPH % 24 % (24-48); MEAN CORPUSCULAR HEMOGLOBIN 31 pg (25-35); MEAN CORPUSCULAR HGB CONC 33 g/dL (31-37); MEAN CORPUSCULAR VOLUME 93 fL (79-100); MONO # 0.5 x10^3/uL (0.0-1.1); MONO % 7 % (0-9); NEUT # 4.8 x10^3uL (1.8-7.7); NEUT % 66 % (31-73); PLATELET COUNT 222 x10^3/uL (140-400); RED BLOOD COUNT 4.62 x10^6/uL (3.50-5.40); RED CELL DISTRIBUTION WIDTH 14.2 % (11.5-14.5); WHITE BLOOD COUNT 7.3 x10^3/uL (4.0-11.0)
[2020-07-19 15:39] LABS: CALCIUM 8.8 mg/dL (8.5-10.1); GFR 52.7; POTASSIUM 3.9 mmol/L (3.5-5.1)
[2020-07-19 15:52] LABS: ALBUMIN 3.7 g/dL (3.4-5.0); ALBUMIN/GLOBULIN RATIO 1.3 (1.0-1.7); MAGNESIUM 1.7 mg/dL (1.8-2.4); TOTAL BILIRUBIN 0.5 mg/dL (0.2-1.0); TOTAL PROTEIN 6.6 g/dL (6.4-8.2)
[2020-07-19] MEDS ORDERED: IV RINGERS SOLUTION,LACTATED 1,000 ML IV ONE (16:15)
[2020-07-19 16:34] LABS: BILIRUBIN,URINE NEG (NEG); CLARITY,URINE CLEAR; COLOR,URINE YELLOW; GLUCOSE,URINE NEG (NEG); NITRITE,URINE NEG (NEG); UROBILINOGEN,URINE 0.2 mg/dL (0.2 mg/dL)
[2020-07-19 16:36] LABS: BACTERIA,URINE 0 /HPF (0-FEW); RBC,URINE OCC /HPF (0-2)
[2020-07-19 16:37] LABS: HYALINE CASTS, URINE OCC /HPF; SQUAMOUS EPITHELIAL CELL,UR MOD /LPF
[2020-07-19 17:55] VITALS: BP 157/78
== END 2020-07-19 18:47 | disposition home or self-care (01) ==
LOC: ER 14:44
DX: R55 Syncope and collapse (principal); K21.9 Gastro-esophageal reflux disease without esophagitis; I10 Essential (primary) hypertension; Z88.6 Allergy status to analgesic agent; Z88.8 Allergy status to other drugs, medicaments and biological substances
CPT/HCPCS: 36415; 71045; 80053; 81001; 83735; 83880; 84484; 85025; 93005; 96360; 96361; 99285; J7120

== ENCOUNTER 2021-05-21 11:29 | Emergency (ER) | payer MEDICARE, OTHER ==
[~2021-05-21] VITALS: Ht 157.5 cm; Wt 77.6 kg
[2021-05-21 11:45] VITALS: BP 146/108
[2021-05-21] MEDS ORDERED: IOHEXOL 300 MG/ML 75 ML VIAL. IV ONE (12:15)
[2021-05-21 12:34] LABS: BASO # 0.1 x10^3/uL (0.0-0.2); BASO % 1 % (0-3); EOS # 0.1 x10^3/uL (0.0-0.7); EOS % 2 % (0-3); HEMATOCRIT 42.1 % (36.0-47.0); HEMOGLOBIN 14.2 g/dL (12.0-15.5); LYMPH # 1.4 x10^3/uL (1.0-4.8); LYMPH % 19 % (24-48); MEAN CORPUSCULAR HEMOGLOBIN 30 pg (25-35); MEAN CORPUSCULAR HGB CONC 34 g/dL (31-37); MEAN CORPUSCULAR VOLUME 88 fL (79-100); MONO # 0.6 x10^3/uL (0.0-1.1); MONO % 8 % (0-9); NEUT # 5.2 x10^3uL (1.8-7.7); NEUT % 70 % (31-73); PLATELET COUNT 246 x10^3/uL (140-400); RED BLOOD COUNT 4.78 x10^6/uL (3.50-5.40); RED CELL DISTRIBUTION WIDTH 13.9 % (11.5-14.5); WHITE BLOOD COUNT 7.4 x10^3/uL (4.0-11.0)
[2021-05-21 12:43] LABS: CALCIUM 9.2 mg/dL (8.5-10.1); CREATININE 0.9 mg/dL (0.6-1.0); GFR 59.4; POTASSIUM 3.9 mmol/L (3.5-5.1)
[2021-05-21] MEDS ORDERED: CONTRAST GIVEN. MC PRN (12:45)
[2021-05-21 12:49] LABS: ALBUMIN 3.8 g/dL (3.4-5.0); ALBUMIN/GLOBULIN RATIO 1.1 (1.0-1.7); TOTAL BILIRUBIN 0.6 mg/dL (0.2-1.0); TOTAL PROTEIN 7.4 g/dL (6.4-8.2)
--- NOTE | 2021-05-21 13:34 | RAD ---
CT ABDOMEN+PELVIS W, CT HEAD AND C-SPINE WO dated 05/21/2021 12:56 PM Indication:Reason: fall, lower back pain / Spl. Instructions: omni 300 75ml, cr0.9, gfr >60 / History : Comparison: CT head 02/16/2020 Technique: Initial noncontrast images were performed through the head and cervical spine. Sagittal an d coronal reconstructions were obtained. This was followed by CT acquisition through the abdomen and pelvis using an infusion of 75 mL Omnipaque 300. One or more of the following individualized dose reduction techniques were utilized for this examinat ion: 1. Automated exposure control 2. Adjustment of the mA and/or kV according to patient size 3. Use of iterative reconstruction technique Findings: CT head: There is no apparent intracranial hemorrhage or abnormal extra-axial fluid collection. No ne w area of abnormal density is seen in the brain. The ventricles and basilar cisterns are normally pos itioned. Bone windows show no fracture of the skull or abnormal sinus or mastoid opacification. CT cervical spine: Alignment is normal. There is no loss of vertebral body height or prevertebral sof t tissue swelling. No fracture line is seen. There is disc narrowing most prominent at C4-5, C5-6 and C6-7. There are some posterior osteophytes. Evaluation of the soft tissue components of the canal is limited without intrathecal contrast. No destructive process is seen. CT abdomen and pelvis: The lung bases are clear. The liver shows multiple small cysts. There is no ev idence of significant parenchymal abnormality or injury. Spleen appears normal except for calcified g ranulomas. Both kidneys enhance with contrast. There is no evidence of injury or obstruction. The adr enal glands and pancreas appear normal. No free fluid is seen in the abdomen. Images through the pelvis show no apparent abnormality of the distal ureters or bladder. There is no free pelvic fluid. There is some atrophy of some of the gluteal musculature, right greater than left. Bone windows reveal some scoliosis of the lumbar spine. There is some cortical buckling of the sacru m anteriorly as seen on sagittal images. This is most apparent at the S2 and also at approximately S5 . These are indeterminate in age. No other fracture is seen. IMPRESSION: CT head: No acute abnormality. CT cervical spine: Degenerative changes. No acute abnormality. CT abdomen and pelvis: No evidence of organ injury or free fluid. There is some cortical buckling of the sacrum that could indicate fracture, although this is indeterminate in age. Electronically signed by: Emile Brantley Jr., MD (05/21/2021 1:32 PM) [facility]
--- NOTE | 2021-05-21 13:37 | RAD ---
XR SHOULDER_RIGHT 2+ VIEWS Clinical indications: Reason: fall, pain / Spl. Instructions: / History: Findings: No acute fracture or dislocation or osteolytic process is evident. 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 IMPRESSION: No acute osseous abnormality is evident. Electronically signed by: Faustino Ruiz MD (05/21/2021 1:34 PM) [id number]
--- NOTE | 2021-05-21 13:46 | RAD ---
XR KNEE 3 VIEWS_RT, XR ELBOW COMPLETE_RIGHT 3+ VIEWS dated 05/21/2021 12:56 PM. History: Reason: fall, pain / Spl. Instructions: / History: Comparison: None. Findings: Elbow: No fracture or dislocation is seen. There are mild arthritic changes at the radiohumeral joint . There is no apparent joint effusion. Right knee 3 views: No fracture or dislocation is seen. Joint spaces are fairly well-maintained for a ge. There is no significant effusion. Impression: 1. No apparent acute abnormality. Electronically signed by: Emile Brantley Jr., MD (05/21/2021 1:44 PM) [facility]
--- NOTE | 2021-05-21 14:24 | PHYS DOC ---
Past History Past Medical History: Hypertension, Hypothyroid, Other Additional Past Medical Histor: POLIO Past Surgical History: Cancer Surgery, Hysterectomy, Other Additional Past Surgical Histo: LEFT MASECTOMY Alcohol Use: None Drug Use: None Adult General Chief Complaint Chief Complaint: MECHANICAL FALL HPI HPI Patient is an 85 year old female who presents with pain after a fall. She states she had a fall at home about 2 weeks ago, states her foot got caught on the carpet and she experienced a mechanical trip and fall onto the carpet. She is unsure if she hit her head, denies loss of consciousness. She is not sure exactly how she fell or if she struck the wall as she fell. She had to call for assistance to get back up off the ground. She complains of ongoing headache, lower back pain, abdominal pain, right upper extremity pain, and left knee pain. She has been able to ambulate. Denies recent illness, denies syncope, denies use of blood thinners. Past medical history hypertension, polio as a child. Review of Systems Review of Systems Constitutional: Denies fever or chills Eyes: Denies change in visual acuity HENT: Denies nasal congestion or sore throat Respiratory: Denies cough or shortness of breath Cardiovascular: Denies chest pain or edema GI: Denies abdominal pain, nausea, vomiting, or diarrhea : Denies dysuria or hematuria Musculoskeletal: Reports back pain, elbow pain, knee pain Integument: Denies rash or skin lesions Neurologic: Reports headache, denies numbness or weakness Endocrine: Denies polyuria or polydipsia All other systems were reviewed and found to be within normal limits, except as documented in this note. Current Medications Current Medications Current Medications Medications (Trade) Dose Ordered Sig/Elizabeth Start Time Stop Time Status Last Admin Dose Admin Info (Do NOT chart on this entry -- for MONITORING) 1 each PRN DAILY PRN 05/21/21 12:45 05/23/21 12:44 Iohexol (Omnipaque 300 Mg/ml) 75 ml 1X ONCE 05/21/21 12:15 05/21/21 12:30 DC 05/21/21 12:15 75 ML Allergies Allergies Allergies Coded Allergies Type Severity Reaction Last Updated Verified Influenza Virus Vaccines Allergy Intermediate 07/19/20 Yes cyclobenzaprine Allergy Intermediate 07/19/20 Yes gabapentin Allergy Intermediate 07/19/20 Yes tramadol Allergy Intermediate 07/19/20 Yes codeine Allergy Unknown 05/21/21 Yes Physical Exam Physical Exam Constitutional: Well developed, well nourished, no acute distress, non-toxic appearance. HENT: Normocephalic, atraumatic, bilateral external ears normal, oropharynx moist, no oral exudates, nose normal. Eyes: PERRLA, EOMI, conjunctiva normal, no discharge. Neck: No midline C-spine tenderness, no step-offs Cardiovascular: Regular rate and rhythm, no murmurs, no edema Lungs & Thorax: Lungs clear to auscultation bilaterally, no wheezing, no respiratory distress Abdomen: Tender across the lower abdomen without focal right lower quadrant or left lower quadrant tenderness, no upper abdominal tenderness, no rebound or guarding, no masses or organomegaly, no pulsatile mass Skin: Warm, dry, no erythema, no rash. Back: Generalized tenderness with palpation over the lower lumbar spine, no step-offs, no CVA tenderness Extremities: Generalized tenderness to the right elbow, no shoulder or wrist tenderness, no swelling or deformity, radial pulse 2+, strength and sensation intact to the distal upper extremity. Generalized tenderness with palpation over the left knee, no hip or ankle tenderness, no swelling or deformity, DP/PT 2+, strength and sensation intact to the distal lower extremity Neurologic: Alert and oriented X 3, cranial nerves II through XII grossly intact, symmetric strength and sensation to upper and lower extremities Psychologic: Affect normal Current Patient Data Vital Signs Vital Signs Date Time Temp Pulse Resp B/P (MAP) Pulse Ox O2 Delivery O2 Flow Rate FiO2 05/21/21 11:45 88 18 146/108 (121) 99 Lab Results Laboratory Tests Test 05/21/21 12:22 White Blood Count 7.4 x10^3/uL (4.0-11.0) Red Blood Count 4.78 x10^6/uL (3.50-5.40) Hemoglobin 14.2 g/dL (12.0-15.5) Hematocrit 42.1 % (36.0-47.0) Mean Corpuscular Volume 88 fL (79-100) Mean Corpuscular Hemoglobin 30 pg (25-35) Mean Corpuscular Hemoglobin Concent 34 g/dL (31-37) Red Cell Distribution Width 13.9 % (11.5-14.5) Platelet Count 246 x10^3/uL (140-400) Neutrophils (%) (Auto) 70 % (31-73) Lymphocytes (%) (Auto) 19 % (24-48) L Monocytes (%) (Auto) 8 % (0-9) Eosinophils (%) (Auto) 2 % (0-3) Basophils (%) (Auto) 1 % (0-3) Neutrophils # (Auto) 5.2 x10^3uL (1.8-7.7) Lymphocytes # (Auto) 1.4 x10^3/uL (1.0-4.8) Monocytes # (Auto) 0.6 x10^3/uL (0.0-1.1) Eosinophils # (Auto) 0.1 x10^3/uL (0.0-0.7) Basophils # (Auto) 0.1 x10^3/uL (0.0-0.2) Sodium Level 139 mmol/L (136-145) Potassium Level 3.9 mmol/L (3.5-5.1) Chloride Level 103 mmol/L (98-107) Carbon Dioxide Level 27 mmol/L (21-32) Anion Gap 9 (6-14) Blood Urea Nitrogen 30 mg/dL (7-20) H Creatinine 0.9 mg/dL (0.6-1.0) Estimated GFR (Cockcroft-Gault) 59.4 BUN/Creatinine Ratio 33 (6-20) H Glucose Level 102 mg/dL (70-99) H Calcium Level 9.2 mg/dL (8.5-10.1) Total Bilirubin 0.6 mg/dL (0.2-1.0) Aspartate Amino Transferase (AST) 46 U/L (15-37) H Alanine Aminotransferase (ALT) 33 U/L (14-59) Alkaline Phosphatase 138 U/L (46-116) H Total Protein 7.4 g/dL (6.4-8.2) Albumin 3.8 g/dL (3.4-5.0) Albumin/Globulin Ratio 1.1 (1.0-1.7) Lipase 110 U/L (73-393) EKG EKG [] Radiology/Procedures Radiology/Procedures PROCEDURE: ELBOW RIGHT 3V XR KNEE 3 VIEWS_RT, XR ELBOW COMPLETE_RIGHT 3+ VIEWS dated 05/21/2021 12:56 PM. History: Reason: fall, pain / Spl. Instructions: / History: Comparison: None. Findings: Elbow: No fracture or dislocation is seen. There are mild arthritic changes at the radiohumeral joint. There is no apparent joint effusion. Right knee 3 views: No fracture or dislocation is seen. Joint spaces are fairly well-maintained for age. There is no significant effusion. Impression: 1. No apparent acute abnormality. Electronically signed by: Christian Brantley Jr., MD (05/21/2021 1:44 PM) [facility] DICTATED AND SIGNED BY: CHRISTIAN BRANTLEY Jr, MD DATE: 05/21/21 134 PROCEDURE: CT HEAD AND CERVICAL SPINE WO CT ABDOMEN+PELVIS W, CT HEAD AND C-SPINE WO dated 05/21/2021 12:56 PM Indication:Reason: fall, lower back pain / Spl. Instructions: omni 300 75ml, cr0.9, gfr >60 / History: Comparison: CT head 02/16/2020 Technique: Initial noncontrast images were performed through the head and cervical spine. Sagittal and coronal reconstructions were obtained. This was followed by CT acquisition through the abdomen and pelvis using an infusion of 75 mL Omnipaque 300. One or more of the following individualized dose reduction techniques were utilized for this examination: 1. Automated exposure control 2. Adjustment of the mA and/or kV according to patient size 3. Use of iterative reconstruction technique Findings: CT head: There is no apparent intracranial hemorrhage or abnormal extra-axial fluid collection. No new area of abnormal density is seen in the brain. The ventricles and basilar cisterns are normally positioned. Bone windows show no fracture of the skull or abnormal sinus or mastoid opacification. CT cervical spine: Alignment is normal. There is no loss of vertebral body height or prevertebral soft tissue swelling. No fracture line is seen. There is disc narrowing most prominent at C4-5, C5-6 and C6-7. There are some posterior osteophytes. Evaluation of the soft tissue components of the canal is limited without intrathecal contrast. No destructive process is seen. CT abdomen and pelvis: The lung bases are clear. The liver shows multiple small cysts. There is no evidence of significant parenchymal abnormality or injury. Spleen appears normal except for calcified granulomas. Both kidneys enhance with contrast. There is no evidence of injury or obstruction. The adrenal glands and pancreas appear normal. No free fluid is seen in the abdomen. Images through the pelvis show no apparent abnormality of the distal ureters or bladder. There is no free pelvic fluid. There is some atrophy of some of the gluteal musculature, right greater than left. Bone windows reveal some scoliosis of the lumbar spine. There is some cortical buckling of the sacrum anteriorly as seen on sagittal images. This is most apparent at the S2 and also at approximately S5. These are indeterminate in age. No other fracture is seen. IMPRESSION: CT head: No acute abnormality. CT cervical spine: Degenerative changes. No acute abnormality. CT abdomen and pelvis: No evidence of organ injury or free fluid. There is some cortical buckling of the sacrum that could indicate fracture, although this is indeterminate in age. Electronically signed by: Christian Brantley Jr., MD (05/21/2021 1:32 PM) [facility] DICTATED AND SIGNED BY: CHRISTIAN BRANTLEY Jr, MD DATE: 05/21/21 1323 PROCEDURE: KNEE RIGHT 3V XR KNEE 3 VIEWS_RT, XR ELBOW COMPLETE_RIGHT 3+ VIEWS dated 05/21/2021 12:56 PM. History: Reason: fall, pain / Spl. Instructions: / History: Comparison: None. Findings: Elbow: No fracture or dislocation is seen. There are mild arthritic changes at the radiohumeral joint. There is no apparent joint effusion. Right knee 3 views: No fracture or dislocation is seen. Joint spaces are fairly well-maintained for age. There is no significant effusion. Impression: 1. No apparent acute abnormality. Electronically signed by: Christian Brantley Jr., MD (05/21/2021 1:44 PM) [facility] DICTATED AND SIGNED BY: CHRISTIAN BRANTLEY Jr, MD DATE: 05/21/21 1342 PROCEDURE: CT LUMBAR SPINE RECONSTRUCTION CT lumbar spine 05/21/2021. Reason for exam: Pain after falling. Helical CT images were performed. Sagittal and coronal images were reconstructed. Exposure: One or more of the following individualized dose reduction techniques were utilized for this examination: 1. Automated exposure control 2. Adjustment of the mA and/or kV according to patient size 3. Use of iterative reconstruction technique. FINDINGS: There is moderate curvature convex to the left. Alignment otherwise appears normal. No lumbar compression fracture is seen. There is prominent disc narrowing and vacuum change involving all discs except for L5-S1. Cortical buckling and offset is again seen at S2 and near S5. No clear-cut acute fracture line is seen CONCLUSION: Cortical buckling of the sacrum of indeterminate age. Electronically signed by: Christian Brantley Jr., MD (05/21/2021 3:30 PM) [facility] DICTATED AND SIGNED BY: CHRISTIAN BRANTLEY Jr, MD DATE: 05/21/21 1521 PROCEDURE: SHOULDER 2+V RIGHT XR SHOULDER_RIGHT 2+ VIEWS Clinical indications: Reason: fall, pain / Spl. Instructions: / History: Findings: No acute fracture or dislocation or osteolytic process is evident. 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 IMPRESSION: No acute osseous abnormality is evident. Electronically signed by: Mariann Ruiz MD (05/21/2021 1:34 PM) [id number] DICTATED AND SIGNED BY: MARIANN RUIZ MD DATE: 05/21/21 1333[] Heart Score C/O Chest Pain: No Risk Factors: Risk Factors: DM, Current or recent (<one month) smoker, HTN, HLP, family history of CAD, obesity. Risk Scores: Risk Factors: DM, Current or recent (<one month) smoker, HTN, HLP, family history of CAD, obesity. Course & Med Decision Making Course & Med Decision Making Pertinent Labs and Imaging studies reviewed. (See chart for details) 1400 Imaging shows possible sacral abnormality but otherwise no acute process. Patient not having focal pain in this area so unclear if this is artifact or old injury or other. Will encourage patient to provide the urine specimen that was ordered to r/o UTI but anticipate discharge. Obtained UA, no acute abnormality. No acute findings on workup. She was comfortable throughout the visit. Discussed results at length with patient & daughter. Recommend continue home meds for pain, okay to use heating pad. Follow up with primary care if not improving in 2-3 days. Return to ED for severe pain, AMS, focal neuro symptoms, any otherwise worsening condition. [] Dragon Disclaimer Dragon Disclaimer This electronic medical record was generated, in whole or in part, using a voice recognition dictation system. Departure Departure: Impression: Primary Impression: Back pain Disposition: HOME / SELF CARE / HOMELESS Condition: STABLE Referrals: RONALD SOLIS MD (PCP) Patient Instructions: Back Pain, Adult, [id number] Additional Instructions: You were seen in the emergency department today for pain after your fall. Your back images showed that there could be a fracture of the sacrum bone. It is not clear if this is new or related to your recent fall. It does not seem like you have pain in that area right now. Your other imaging tests did not show any serious injuries. Please rest, use a heating pad for comfort, take naproxen as prescribed and use Tylenol if needed for breakthrough pain. Follow-up with primary care physician if not feeling better on Sunday. Return to the emergency department for severe headache, confusion, severe abdominal pain, severe chest pain or shortness of breath, any otherwise worsening condition. MT FLORES MD May 21, 2021 14:24
--- NOTE | 2021-05-21 15:32 | RAD ---
CT lumbar spine 05/21/2021. Reason for exam: Pain after falling. Helical CT images were performed. Sagittal and coronal images were reconstructed. Exposure: One or mo re of the following individualized dose reduction techniques were utilized for this examination: 1. Automated exposure control 2. Adjustment of the mA and/or kV according to patient size 3. Use of it erative reconstruction technique. FINDINGS: There is moderate curvature convex to the left. Alignment otherwise appears normal. No lumb ar compression fracture is seen. There is prominent disc narrowing and vacuum change involving all di scs except for L5-S1. Cortical buckling and offset is again seen at S2 and near S5. No clear-cut acut e fracture line is seen CONCLUSION: Cortical buckling of the sacrum of indeterminate age. Electronically signed by: Emile Brantley Jr., MD (05/21/2021 3:30 PM) [facility]
[2021-05-21 15:42] LABS: BACTERIA,URINE 0 /HPF (0-FEW); CLARITY,URINE CLEAR; COLOR,URINE YELLOW; GLUCOSE,URINE NEG (NEG); NITRITE,URINE NEG (NEG); RBC,URINE 0 /HPF (0-2); SQUAMOUS EPITHELIAL CELL,UR FEW /LPF; UROBILINOGEN,URINE 0.2 mg/dL (0.2 mg/dL); WBC,URINE RARE /HPF (0-4)
== END 2021-05-21 16:40 | disposition home or self-care (01) ==
LOC: ER 11:29
DX: M54.59 Other low back pain (principal); M25.521 Pain in right elbow; R51.9 Headache, unspecified; M25.562 Pain in left knee; R10.30 Lower abdominal pain, unspecified; I10 Essential (primary) hypertension; E03.9 Hypothyroidism, unspecified; Z88.7 Allergy status to serum and vaccine; Z88.5 Allergy status to narcotic agent; Z88.8 Allergy status to other drugs, medicaments and biological substances; W18.39XA Other fall on same level, initial encounter; Y93.89 Activity, other specified; Y92.89 Other specified places as the place of occurrence of the external cause; Y99.8 Other external cause status
CPT/HCPCS: 36415; 70450; 72125; 73030; 73080; 73562; 74177; 76376; 80053; 81001; 83690; 85025; 99285; Q9967

== ENCOUNTER → 2021-05-26 | Outpatient (CLI) | payer MEDICARE, OTHER ==
[2021-05-21 11:45] VITALS: BP 146/108
--- NOTE | 2021-05-26 15:58 | RAD ---
EXAM: Left knee, 3 views. HISTORY: Pain. COMPARISON: None. FINDINGS: 3 views of the left knee are obtained. There is a left knee arthroplasty in expected positi on. There is no evidence of arthroplasty loosening. There is no fracture. There is no joint effusion. There is enthesopathy along the superior patella. IMPRESSION: Left knee arthroplasty in expected position. Electronically signed by: Alix Soni MD (05/26/2021 3:56 PM) [id number]
== END ==
LOC: RAD 15:29
PROVIDERS: ATTEND Physician Assistant
DX: M76.892 Other specified enthesopathies of left lower limb, excluding foot (principal); Z96.652 Presence of left artificial knee joint
CPT/HCPCS: 73562